=== PATIENT | male | born 1960 | race Caucasian/White ===

== ENCOUNTER 2020-04-23 11:59 | Outpatient (REF) | payer BC, SELFPAY | END 2020-04-23 12:00 | disposition home or self-care (01) | LOC: HO.LAB 11:59 | PROVIDERS: Visit Provider Internal Medicine | DX: Z20.822 Contact with and (suspected) exposure to COVID-19 (principal) | CPT/HCPCS: 36415; C9803; U0003; U0005 ==

== ENCOUNTER 2020-06-30 09:20 | Outpatient (REF) | payer BC, SELFPAY ==
[2020-06-30 09:48] LABS: COVID-19 Test Negative (Negative)
== END 2020-06-30 09:21 | disposition home or self-care (01) ==
LOC: HO.LAB 09:20
PROVIDERS: Visit Provider Internal Medicine
DX: Z20.822 Contact with and (suspected) exposure to COVID-19 (principal)
CPT/HCPCS: 36415; 87635; C9803

== ENCOUNTER 2020-07-16 15:02 | Outpatient (REF) | payer BC, SELFPAY ==
[2020-07-16 15:28] LABS: COVID-19 Test Negative (Negative)
== END 2020-07-16 15:03 | disposition home or self-care (01) ==
LOC: HO.LAB 15:02
PROVIDERS: Visit Provider Internal Medicine
DX: Z20.822 Contact with and (suspected) exposure to COVID-19 (principal)
CPT/HCPCS: 36415; 87635; C9803

== ENCOUNTER 2020-09-30 09:36 | Emergency (ER) | payer BC, SELFPAY ==
[2020-09-30 10:16] VITALS: BP 177/85; PULSE 77; RESP 20; TEMP 37.2; O2SAT 98; BMI 29.2
--- NOTE | 2020-09-30 11:40 | ED.GENADULT ---
HPI - General Adult General Chief complaint: Upper Respiratory Symptoms Stated complaint: fever Time Seen by Provider: 09/30/20 11:29 Source: patient Mode of arrival: ambulatory Limitations: no limitations History of Present Illness HPI narrative: 6-year-old man who presents emergency department for evaluation of upper respiratory symptoms. He states that on Tuesday (4 days prior to evaluation) he had to clean out dirty water in his basement. He states that the water had a very foul smell to it. He states that the next day he then developed a nonproductive cough, intermittent, moderate burning chest pain with coughing only, headaches, myalgias and fatigue. He states the symptoms have continued and he did not want to go to work today since he was concerned that he may have COVID-19. He denied shortness of breath or dyspnea on exertion. He has not lost his sense of taste or smell. He denies diarrhea. States he has been taking Tylenol with relief of his headache and muscle pain. The patient completed the 2 shot Pfizer vaccination for COVID-19. He states the 2nd vaccination was 3 months prior. Related Data Allergies Allergy/AdvReac Type Severity Reaction Status Date / Time No Known Allergies Allergy Verified 09/30/20 10:15 Review of Systems Review of Systems: Yes all other systems are reviewed and are negative FOR[facility] LAT[facility] Past Medical History FOR[facility] Narrative: Social history: The patient denies tobacco use. He states that he was a former smoker and smoked for 40 years but quit 5 months prior. The patient drinks alcohol occasionally. He denies drug use. Source: unable to obtain Medical History (Updated 09/30/20 @ 12:27 by Yehuda Brambila MD) Asthma Diabetes Hypertension Social History Social History Alcohol intake: never Smoked in Last 30 Days: No Use of substances other than those prescribed or required for medical reasons: No Advance Directives: No Advance Directives Information Provided: No Physical Exam Vital Signs: Vital Signs: Last Vital Signs Temp 98.9 F 09/30/20 10:16 Pulse 77 09/30/20 10:16 Resp 20 09/30/20 10:16 BP 177/85 H 09/30/20 10:16 Pulse Ox 98 09/30/20 10:16 Body Mass Index 29.2 Const: General: cooperative and no acute distress Orientation/consciousness: oriented to person and oriented to place Limitations: no limitations HENMT: Head: Yes normal to inspection, Yes normocephalic and Yes atraumatic Ears: external ears normal General nose exam: Normal external nose present Face and sinus: Yes normal facial exam Mouth: Normal oral and palatal mucosa present Throat: Yes posterior oropharynx normal Eyes: General: appearance normal, both eyes and all related structures Pupils: Equal, round and reactive pupils present Neck: Neck: Yes normal visual inspection, Yes no lymphadenopathy, Yes trachea midline and Yes supple Chest: Chest palpation & inspection: normal inspection of the chest and normal palpation of entire chest wall Resp: Effort & Inspection: normal respiratory effort and able to speak in complete sentences Auscultation: clear to auscultation bilaterally Cardio: Rate: regular rate Rhythm: regular rhythm Heart sounds: S1 normal heart sound present, S2 normal heart sound present and no murmurs GI: Inspection: Yes normal to inspection Palpation (GI): Soft to palpation, nontender and no guarding Auscultation: normal bowel sounds : General: Yes no CVA tenderness Back/Spine/Pelvis: Back: no CVA tenderness Skin: General skin exam: no rashes or lesions noted Neuro: General: oriented to person and oriented to place Cranial nerves: Yes CN's II-XII intact bilaterally and Yes Equal, round and reactive pupils present Cognition (Neuro): normal cognition Motor exam (neuro): 5/5 motor strength present throughout Extrem: General: Yes normal to inspection Psych: Appearance: grossly normal Speech and movement: Normal speech and movement present Affect: normal affect Attitude: cooperative Thought process: Normal thought process present Thought content: Normal thought content present Course Course Course Narrative: 60-year-old male who presents emergency department for evaluation of URI symptoms x4 days. Vital signs reveal hypertension with a blood pressure of 177/85 otherwise were unremarkable. Physical examination was unremarkable. Patient will be tested for COVID-19. 1225: Patient's COVID-19 test was negative. The patient's presentation is consistent with a viral URI. The patient was given verbal and printed instructions prior to discharge. The patient was advised to follow-up with his PCP in 2 days and to return to the emergency department if his symptoms get worse or if he develops any new symptoms that are concerning to him. Medical Decision Making Lab Data Labs: Lab Results 09/30/20 Range/Units 11:43 COVID-19 ([facility]) Negative (Negative) COVID-19 Clin Com See Note Discharge Plan Discharge Clinical Impression: Upper respiratory infection Qualifiers: URI type: unspecified viral URI Qualified Code(s): J06.9 - Acute upper respiratory infection, unspecified Patient Disposition: Home, Self-Care Instructions: Viral Syndrome (ED) Additional Instructions: Your COVID-19 test was negative. Your symptoms are consistent with a viral upper respiratory tract infection. Take ibuprofen 200 mg pills, 3 pills every 6 hours as needed for pain. Take Tylenol (acetaminophen) 500 mg pills, 2 pills every 4 to 6 hours as needed for pain. Follow-up with your doctor in 2 days. Please return to the emergency department if your symptoms get worse or if you develop any symptoms that are concerning to you. Stand Alone Forms: Work/School Release Print Language: Tajik
[2020-09-30 12:03] LABS: COVID-19 Test Negative (Negative)
== END 2020-09-30 12:53 | disposition home or self-care (01) ==
PROVIDERS: Emergency Provider Emergency Medicine Emergency Medical Services
DX: J06.9 Acute upper respiratory infection, unspecified (principal); Z20.822 Contact with and (suspected) exposure to COVID-19; Z79.899 Other long term (current) drug therapy
CPT/HCPCS: 36415; 87635; 99284